=== PATIENT | male | born 1995 | race Caucasian/White ===

== ENCOUNTER 2020-12-20 00:33 | Emergency (ER) | payer SELFPAY | END 2020-12-20 02:47 | disposition left against medical advice (07) | LOC: FER 00:33 | DX: R07.89 Other chest pain (principal); Z53.8 Procedure and treatment not carried out for other reasons | CPT/HCPCS: 93005 ==

== ENCOUNTER 2021-06-08 12:26 | Emergency (ER) | payer MEDICARE ==
[2021-06-08] MEDS ORDERED: AUGMENTIN 875-1 EACH PO (14:05)
== END 2021-06-08 14:20 | disposition home or self-care (01) ==
LOC: FER 12:26
DX: S61.250A Open bite of right index finger without damage to nail, initial encounter (principal); S61.257A Open bite of left little finger without damage to nail, initial encounter; U07.1 COVID-19; W54.0XXA Bitten by dog, initial encounter
CPT/HCPCS: 73120; J1100